=== PATIENT | female | born 1945 | race Caucasian/White ===

== ENCOUNTER → 2023-07-19 13:35 | Outpatient (REF) | payer OTHER, SELFPAY | LOC: HWRCS 13:35 | PROVIDERS: ATTENDING PHYSICIAN Nuclear Medicine Nuclear Cardiology; FAMILY PHYSICIAN Family Medicine | DX: I10 Essential (primary) hypertension (principal); I35.0 Nonrheumatic aortic (valve) stenosis | CPT/HCPCS: 93306 ==

== ENCOUNTER → 2023-09-07 11:38 | Outpatient (REF) | payer OTHER, SELFPAY | LOC: HWRAD 11:38 | PROVIDERS: ATTENDING PHYSICIAN Podiatrist Foot & Ankle Surgery; FAMILY PHYSICIAN Family Medicine | DX: M20.22 Hallux rigidus, left foot (principal) | CPT/HCPCS: 73630 ==

== ENCOUNTER → 2023-11-24 09:48 | Outpatient (REF) | payer OTHER, SELFPAY | LOC: WDC 09:48 | PROVIDERS: ATTENDING PHYSICIAN Obstetrics & Gynecology Gynecology; FAMILY PHYSICIAN Family Medicine | DX: N64.4 Mastodynia (principal) | CPT/HCPCS: 76642; 77062; 77066 ==

== ENCOUNTER → 2024-03-21 13:50 | Outpatient (REF) | payer OTHER, MEDICARE, SELFPAY | LOC: HWRCS 13:50 | PROVIDERS: ATTENDING PHYSICIAN Nuclear Medicine Nuclear Cardiology; FAMILY PHYSICIAN Family Medicine | DX: I35.0 Nonrheumatic aortic (valve) stenosis (principal) | CPT/HCPCS: 93306 ==

== ENCOUNTER → 2024-05-14 08:35 | Outpatient (REF) | payer OTHER, SELFPAY | LOC: MRI 3T 08:35 | PROVIDERS: ATTENDING PHYSICIAN Ophthalmology; FAMILY PHYSICIAN Family Medicine | DX: H05.20 Unspecified exophthalmos (principal); H35.363 Drusen (degenerative) of macula, bilateral; H43.813 Vitreous degeneration, bilateral; H04.123 Dry eye syndrome of bilateral lacrimal glands | CPT/HCPCS: 70543; A9575 ==

== ENCOUNTER 2024-05-21 08:13 | Day surgery (SDC) | payer OTHER, SELFPAY ==
[2024-05-15 11:04] LABS: Hematocrit 39.4 % (37.0-47.0); Hemoglobin 12.8 g/dL (12.0-16.0); Mean Corp Hgb Conc. 32.5 g/dL (33.0-37.0); Mean Corpuscular Hgb 31.9 pg (27.0-31.0); Mean Corpuscular Volume 98.3 fL (81.0-99.0); Platelet Count 161 10^3/uL (130-400); Red Blood Cell Count 4.01 10^6/uL (4.20-5.40); Red Cell Dist. Width 12.4 % (11.5-14.5); White Blood Cell Count 5.3 10^3/uL (4.8-10.8)
[2024-05-15 12:01] LABS: Blood Urea Nitrogen 22 mg/dl (7-17); Calcium 9.8 mg/dl (8.4-10.2); Carbon Dioxide 29 mmol/L (22-30); Chloride 107 mmol/L (98-107); Glucose 87 mg/dl (70-99); Potassium 4.5 mmol/L (3.5-5.1); Sodium 142 mmol/L (135-145); eGFR > 60.00
[2024-05-16 13:55] VITALS: BMI 29.2
[2024-05-21] VITALS (7 sets, daily range): BP systolic 114–134; BP diastolic 50–61; BMI 29.2
[2024-05-21] MEDS: NORMOSOL-R/PLASMALYTE-A 1000 IV (08:48)
[2024-05-21] MEDS: Pyridium 200 MG PO (08:49)
== END 2024-05-21 13:27 | disposition home or self-care (01) ==
LOC: SDS 08:13
PROVIDERS: ATTENDING PHYSICIAN Obstetrics & Gynecology; FAMILY PHYSICIAN Family Medicine
DX: N81.2 Incomplete uterovaginal prolapse (principal); N39.3 Stress incontinence (female) (male); R39.15 Urgency of urination; N95.2 Postmenopausal atrophic vaginitis
CPT/HCPCS: 57120; 57250; 36415; 80048; 85027; 86850; 86900; 86901; C1713

== ENCOUNTER 2024-06-25 07:24 | Day surgery (SDC) | payer OTHER, SELFPAY ==
[2024-06-25] VITALS (14 sets, daily range): BP systolic 100–147; BP diastolic 47–113; BMI 29.0
[2024-06-25] MEDS: LOW STRENGTH ASPIRIN 324 MG PO (08:15)
[2024-06-25 08:49] LABS: Hematocrit 33.9 % (37.0-47.0); Hemoglobin 11.3 g/dL (12.0-16.0); Mean Corp Hgb Conc. 33.3 g/dL (33.0-37.0); Mean Corpuscular Hgb 32.2 pg (27.0-31.0); Mean Corpuscular Volume 96.6 fL (81.0-99.0); Mean Platelet Volume 10.1 fL (7.4-10.4); Platelet Count 161 10^3/uL (130-400); Red Blood Cell Count 3.51 10^6/uL (4.20-5.40); Red Cell Dist. Width 12.5 % (11.5-14.5); White Blood Cell Count 4.4 10^3/uL (4.8-10.8)
[2024-06-25 09:10] LABS: Hematocrit 34.7 % (37.0-47.0); Hemoglobin 11.6 g/dL (12.0-16.0); Mean Corp Hgb Conc. 33.4 g/dL (33.0-37.0); Mean Corpuscular Volume 95.9 fL (81.0-99.0); Mean Platelet Volume 10.1 fL (7.4-10.4); Platelet Count 153 10^3/uL (130-400); Red Blood Cell Count 3.62 10^6/uL (4.20-5.40); Red Cell Dist. Width 12.4 % (11.5-14.5); White Blood Cell Count 4.3 10^3/uL (4.8-10.8)
[2024-06-25 09:17] LABS: Blood Urea Nitrogen 21 mg/dl (7-17); Calcium 9.4 mg/dl (8.4-10.2); Carbon Dioxide 27 mmol/L (22-30); Chloride 111 mmol/L (98-107); Estimated Creatinine Clearance 59 ml/min; Glucose 90 mg/dl (70-99); Potassium 4.2 mmol/L (3.5-5.1); Sodium 142 mmol/L (135-145); eGFR > 60.00
--- NOTE | 2024-06-25 11:40 | ITS.CL.CATH ---
Activities Director - Catheterization
Cardiac Catheterization
Procedure Report:
RIGHT AND LEFT HEART STUDY
Date of Procedure: June 25, 2024
Referring: Dr. Elkin Joshua
PROCEDURES:
1. Right heart catheterization
2. Left heart catheterization with coronary and single-plane left ventriculography
3. Hemodynamic assessment of the RCA
INDICATION: This is a 79-year-old female with a past medical history notable for Sjogren's syndrome and aortic stenosis graded as moderate-severe by echocardiogram in March 2024. Her mean gradient was 31 mmHg at that time and there was moderate
aortic insufficiency. She developed some atypical abdominal discomfort radiating into the chest and shoulder and into her head that improves with massage. She continues to experience frequent episodes of dizziness. She is now referred for
coronary angiography and assessment of aortic valve hemodynamic
ACCESS: Right radial artery, 6 [place] sheath in right common femoral vein, 6 [place] sheath using ultrasound guidance for access of the femoral vein
HEMODYNAMICS : mmHg
RA (m) : 8
RV (s/d,m) : 26/3, 12
PA (s/d, m) : 28/12, 19
PCWP (m) : 11
AO (s/d) : 138/55, 88
LV (s/d) : 166/9
LVEDP : 18
Estimated Sánchez Cardiac Output: 3.9 L / min and Cardiac Index: 2.2 L/ min / m-2
AORTIC VALVE:
Mean Gradient: 39 mmHg
Aortic Valve Area: 0.65 cm2
CORONARY FINDINGS :
Dominance: Right
LEFT MAIN: Normal
LEFT ANTERIOR DESCENDING: The LAD arises normally from the left main and runs in the anterior interventricular groove. The LAD has only minor irregularities over its course with no focal obstructive stenosis. The distal LAD does not wraparound the
apex supplying a portion of the inferior wall. 2 diagonal branches arise from the proximal one third of the LAD. Both diagonal branches are widely patent
CIRCUMFLEX: The circumflex is a medium caliber nondominant vessel. OM1 arises from the mid circumflex and bifurcates into 2 daughter branches of equivalent diameter. Both daughter branches have only minor irregularities. The mid circumflex
continues in the AV groove supplying a posterolateral branch.
RIGHT CORONARY ARTERY: The right coronary artery is a medium caliber nondominant vessel with a proximal 50-60% stenosis. The iFR serially measured above the ischemic threshold at 1.0
VENTRICULOGRAPHY: Left ventriculography is performed in an SHARIF projection. The digital single-plane left ventricular ejection fraction is visually estimated between 60 and 65%
HEMODYNAMIC ASSESSMENT OF THE RCA WITH A EnteGreatO OMNI WIRE: The origin of the RCA was cannulated with a 6 Fr JR4 guide catheter. Intravenous heparin was administered and the ACT was followed during the procedure. Two hundred micrograms of
intracoronary nitroglycerin was given through the guide catheter. A [place] Omni wire was advanced to the guide catheter tip and normalized to guide catheter pressure. The Omni wire was then carefully manipulated across the stenosis in the mid
RCA. The IFR serially measured above the ischemic threshold at 1.0. No drift was noted on pullback.
SEDATION: 98 minutes of procedural sedation was utilized. An independent medical office supervisor was present to assist with and help manage the patient's level of consciousness and physiologic status
RADIATION SUMMARY: Fluoro Time (min): 7.0, Dose (mGy): 262, DAP (Gy.cm2) : 23.1
CONCLUSIONS
1. Nonobstructive coronary disease
2. Moderate to severe aortic stenosis with a mean aortic valve gradient of 39 mmHg.
RECOMMENDATIONS
1. Symptoms are somewhat atypical for ischemic heart disease or aortic stenosis.
2. She is scheduled to see Dr. Joshua in a few weeks. If he feels that she is symptomatic from her aortic valve then may consider SAVR vs TAVR. Otherwise he will repeat echocardiogram and follow clinically
Copy to: Dr. Elkin Joshua
[2024-06-25 12:04] LABS: ACT-LR - POC 219 Seconds (116-155)
== END 2024-06-25 14:45 | disposition home or self-care (01) ==
LOC: CATH 07:24
PROVIDERS: ATTENDING PHYSICIAN Internal Medicine Interventional Cardiology; FAMILY PHYSICIAN Family Medicine; OTHER PHYSICIAN Nuclear Medicine Nuclear Cardiology
DX: I25.10 Atherosclerotic heart disease of native coronary artery without angina pectoris (principal); M35.00 Sjogren syndrome, unspecified; I35.2 Nonrheumatic aortic (valve) stenosis with insufficiency; K21.9 Gastro-esophageal reflux disease without esophagitis; I10 Essential (primary) hypertension; E78.00 Pure hypercholesterolemia, unspecified; Z79.899 Other long term (current) drug therapy
CPT/HCPCS: 99152; 99153; 93799; 80048; 85027; 85347; 93460; C1769; C1894; Q9967

== ENCOUNTER → 2024-10-24 09:02 | Outpatient (REF) | payer OTHER, SELFPAY | LOC: RCS 09:02 | PROVIDERS: ATTENDING PHYSICIAN Nuclear Medicine Nuclear Cardiology; FAMILY PHYSICIAN Family Medicine | DX: R06.02 Shortness of breath (principal); I35.0 Nonrheumatic aortic (valve) stenosis | CPT/HCPCS: 93306 ==